=== PATIENT | male | born 1995 | race Caucasian/White ===

== ENCOUNTER 2017-12-18 13:42 | Emergency (ER) | payer BC ==
--- NOTE | 2017-12-18 14:19 | EDM.PDOC ---
ED HPI GENERAL MEDICAL PROBLEM - General Chief Complaint: Fever Stated Complaint: FEVER/BODY ACHES Time Seen by Provider: 12/18/17 13:58 Source of Information: Reports: Patient History Limitations: Reports: No Limitations - History of Present Illness INITIAL COMMENTS - FREE TEXT/NARRATIVE: The patient presents with fever, chills, body aches, and cough. This started about 2 days ago. He did not get his flu shot. He has no vomiting or diarrhea. He has decreased appetite. He smokes. He has no other health problems. Onset: Gradual Duration: Day(s): (2) Location: Reports: Generalized Quality: Reports: Ache Severity: Severe Improves with: Reports: None Worsens with: Reports: None Associated Symptoms: Reports: Cough, Fever/Chills, Headaches. Denies: Nausea/ Vomiting, Shortness of Breath Generalized Pain Score (Numeric/FACES): 8 - Related Data Allergies Allergy/AdvReac Type Severity Reaction Status Date / Time No Known Allergies Allergy Verified 12/18/17 13:50 Home Meds: Home Meds Codeine/Promethazine [Phenergan with Codeine] 5 - 10 ml PO Q6HR PRN #240 ml 04/29 [Rx] Past Medical History - Past Health History Medical/Surgical History: Denies Medical/Surgical History Social & Family History - Tobacco Use Smoking Status *Q: Never Smoker - Caffeine Use Caffeine Use: Reports: Coffee - Recreational Drug Use Recreational Drug Use: No ED ROS GENERAL - Review of Systems Review Of Systems: See Below Constitutional: Reports: Fever, Chills, Malaise, Weakness, Fatigue HEENT: Reports: No Symptoms Respiratory: Reports: Cough Cardiovascular: Reports: No Symptoms Endocrine: Reports: No Symptoms GI/Abdominal: Reports: No Symptoms : Reports: No Symptoms Musculoskeletal: Reports: No Symptoms ED EXAM, SEPSIS - Physical Exam Exam: See Below Exam Limited By: No Limitations General Appearance: Alert, No Apparent Distress Ears: Normal External Exam, Normal Canal, Normal TMs Nose: Normal Inspection Throat/Mouth: Normal Inspection Head: Atraumatic, Normocephalic Neck: Normal Inspection Respiratory/Chest: No Respiratory Distress, Lungs Clear, Normal Breath Sounds Cardiovascular: Regular Rate, Rhythm, No Edema, No Murmur GI/Abdominal Exam: Soft, Non-Tender, No Organomegaly, No Mass Back: Normal Inspection Extremities: Normal Inspection Neurological: Alert, Oriented, No Motor/Sensory Deficits Course - Vital Signs Last Recorded V/S: Last Vital Signs Temp 99.6 F 12/18/17 13:47 Pulse 128 H 12/18/17 13:47 Resp 16 12/18/17 13:47 BP 144/83 H 12/18/17 13:47 Pulse Ox 94 L 12/18/17 13:47 - Re-Assessments/Exams Free Text/Narrative Re-Assessment/Exam: 12/18/17 14:19 I ordered influenza and CXR. 12/18/17 15:23 His CXR is negative. His influenza is negative. Departure - Departure Time of Disposition: 15:25 Disposition: Home, Self-Care 01 Condition: Good Clinical Impression: Viral URI with cough - Discharge Information Prescriptions: Codeine/Promethazine [Phenergan with Codeine] 5 - 10 ml PO Q6HR PRN #240 ml PRN Reason: Cough Referrals: PCP,None [Primary Care Provider] - Mikaela Burgos PA [Physician [employer]] - 1 Week Forms: ED Department Discharge Additional Instructions: Take tylenol or motrin for pain or fever. Take the phenergan with codeine every 6 hours as needed for cough. Please return if you are worse.
--- NOTE | 2017-12-18 14:57 | CR ---
Chest: Two views of the chest were obtained. Comparison: No previous study. Heart size and mediastinum are normal. Lungs are clear. Bony structures are unremarkable. Impression: 1. Nothing acute is identified on two-view chest x-ray. Diagnostic code #1
== END 2017-12-18 15:38 | disposition home or self-care (01) ==
LOC: JD.ED 13:42
DX: J06.9 Acute upper respiratory infection, unspecified (principal)
CPT/HCPCS: 71046; 71046-26; 87804; 99283; 99284

== ENCOUNTER 2019-04-05 06:22 | Emergency (ER) | payer BC, OTHER ==
--- NOTE | 2019-04-05 07:09 | EDM.PDOC ---
ED HPI GENERAL MEDICAL PROBLEM - General Chief Complaint: ENT Problem Stated Complaint: DENTAL COMPLAINT Time Seen by Provider: 04/05/19 06:34 Source of Information: Reports: Patient History Limitations: Reports: No Limitations - History of Present Illness INITIAL COMMENTS - FREE TEXT/NARRATIVE: This is a 23-year-old male. He comes this morning because he's having some tooth pain. He believes his wisdom tooth in the right lower jaw is pushing against his molar and it stripped it and is having lots of pain. He states there is also some drainage as well as a bad taste. His been going on for about 2 days but worse in the last 24 hours. He was hoping to have his tooth pulled but I explained to him that he would need to see a dentist for this to happen. In the meantime we will start him on some antibiotics and give him a nonnarcotic for pain. He already has a dentist that he was going to see on Sunday but they were closed. He denies any fever or chills no nausea and vomiting and no cough. Right Upper Tooth/Teeth Pain Score (Numeric/FACES): 9 - Related Data Allergies Allergy/AdvReac Type Severity Reaction Status Date / Time No Known Allergies Allergy Verified 12/18/17 13:50 Home Meds: Home Meds Penicillin V Potassium 500 mg PO Q6HR #40 tab 04/05/19 [Rx] traMADol [Ultram] 50 mg PO Q8H PRN #15 tablet 04/05/19 [Rx] Past Medical History - Past Health History Medical/Surgical History: Denies Medical/Surgical History Social & Family History - Family History Family Medical History: Noncontributory - Tobacco Use Smoking Status *Q: Current Every Day Smoker Years of Tobacco use: 8 Packs/Tins Daily: 2 - Caffeine Use Caffeine Use: Reports: Coffee, Energy Drinks, Soda, Tea - Recreational Drug Use Recreational Drug Use: No ED ROS ENT - Review of Systems Review Of Systems: See Below Constitutional: Denies: Fever, Chills HEENT: Reports: Dental Pain Respiratory: Reports: No Symptoms Cardiovascular: Reports: No Symptoms Endocrine: Reports: No Symptoms GI/Abdominal: Reports: No Symptoms : Reports: No Symptoms Musculoskeletal: Reports: No Symptoms Skin: Reports: No Symptoms Neurological: Reports: No Symptoms Psychiatric: Reports: No Symptoms Hematologic/Lymphatic: Reports: No Symptoms ED EXAM, ENT - Physical Exam Exam: See Below Exam Limited By: No Limitations General Appearance: Alert, WD/WN, No Apparent Distress Eye Exam: Bilateral Eye: Normal Inspection Ears: Normal External Exam Nose: Normal Inspection Mouth/Throat: Normal Oropharynx, Dental Pain, Other (Patient has dental caries and advanced periodontal disease noted, in the right lower jaw there is a chipped back molar but if the wisdom tooth is pushing on it it's underneath the gum, there is some mild swelling of the soft tissue back there as well but there is no soft tissue swelling on the outside of the cheek, touching the tooth with a tongue blade is tender) Head: Normocephalic Neck: Supple Respiratory/Chest: No Respiratory Distress Back: Full Range of Motion Extremities: Normal Inspection, Normal Range of Motion Neurological: Alert, Oriented Psychiatric: Normal Affect, Normal Mood Skin: Warm, Dry Course - Vital Signs Last Recorded V/S: Last Vital Signs Temp 98.2 F 04/05/19 06:31 Pulse 100 04/05/19 06:31 Resp 18 04/05/19 06:31 BP 172/106 H 04/05/19 06:31 Pulse Ox 97 04/05/19 06:31 - Re-Assessments/Exams Free Text/Narrative Re-Assessment/Exam: 04/05/19 07:11 The patient is to follow-up with the dentist on Sunday for evaluation of his tooth and advanced dental disease. Departure - Departure Time of Disposition: 07:11 Disposition: Home, Self-Care 01 Condition: Good Clinical Impression: Dental caries, Periodontal disease, Pain, dental, Dental infection Chipped tooth Qualifiers: Encounter type: initial encounter Fracture type: closed Qualified Code(s): S02.5XXA - Fracture of tooth (traumatic), initial encounter for closed fracture - Discharge Information *PRESCRIPTION DRUG MONITORING PROGRAM REVIEWED*: No *COPY OF PRESCRIPTION DRUG MONITORING REPORT IN PATIENT JUNE: No Prescriptions: Penicillin V Potassium 500 mg PO Q6HR #40 tab traMADol [Ultram] 50 mg PO Q8H PRN #15 tablet PRN Reason: Pain Referrals: PCP,None [Primary Care Provider] - Additional Instructions: This morning when [facility] opens around 9 AM get your prescriptions filled and take your antibiotics faithfully, use the tramadol as needed for pain and you may supplement with ibuprofen and Tylenol, be certain to follow-up with your dentist on Sunday for reevaluation and hopefully extraction of wisdom teeth, return to the ER if needed
[2019-04-05] MEDS ORDERED: cefTRIAXone 1 GM, Lidocaine 1% 2.1 ML IM SCH ×2 (07:15)
== END 2019-04-05 07:35 | disposition home or self-care (01) ==
LOC: JD.ED 06:22
DX: K04.7 Periapical abscess without sinus (principal); K05.6 Periodontal disease, unspecified; K02.9 Dental caries, unspecified; K03.81 Cracked tooth; F17.210 Nicotine dependence, cigarettes, uncomplicated
CPT/HCPCS: 96372; 99282; J0696; J2001; 99283

== ENCOUNTER 2022-04-24 19:18 | Emergency (ER) | payer BC ==
[2022-04-24] MEDS ORDERED: Sodium Chloride 0.9% 1,000 ML IV ONE (20:06)
[2022-04-24 20:35] LABS: ESTIMATED GFR > 60 mL/min (>60)
[2022-04-24] MEDS ORDERED: Ibuprofen 600 MG Tab PO ONE (20:49)
== END 2022-04-24 22:15 | disposition home or self-care (01) ==
LOC: JD.ED 19:18
DX: U07.1 COVID-19 (principal); F17.210 Nicotine dependence, cigarettes, uncomplicated
CPT/HCPCS: 36415; 71046; 80053; 83605; 83735; 83880; 84484; 85007; 85027; 85379; 86140; 87635; 96360; 99284; A9270; J7030; U0002